=== PATIENT | male | born 1965 | race Caucasian/White ===

== ENCOUNTER 2017-05-28 13:15 | Emergency (ER) | payer SELFPAY ==
[2017-05-28 13:19] VITALS: BP 177/117
--- NOTE | 2017-05-28 13:46 | ER Document Report ---
ED Extremity Problem, Upper - General Chief Complaint: Wrist Pain Stated Complaint: MED REFILL Time Seen by Provider: 05/28/17 13:27 Mode of Arrival: Ambulatory Information source: Patient Notes: 51-year-old male presents to ED for gout flareup to his left hand and wrist since yesterday. States he is out of his gout medications. States he took the last one yesterday. States he has a history of high blood pressure but has not been to a doctor and several months and is been out of his lisinopril and metoprolol. Patient was taken indomethacin for his gout. TRAVEL OUTSIDE OF THE [place] IN LAST 30 DAYS: No - HPI Patient complains to provider of: Left, Hand, Wrist Onset: Other - Started states he took the Indocin he had left the ER for more medication. He also is out of his blood pressure medicine because he has not been back to the doctor for several months. Recent injury: No Quality of pain: Burning, Sharp Severity of pain: Moderate Pain Level: 3 Associated symptoms: None Exacerbated by: Movement, Exertion Relieved by: Rest, Positioning Similar symptoms previously: Yes Recently seen / treated by doctor: No - Related Data Allergies/Adverse Reactions: No Known Allergies Allergy (Verified 05/28/17 13:18) Past Medical History - General Information source: Patient - Social History Smoking Status: Never Smoker Cigarette use (# per day): No Chew tobacco use (# tins/day): No Smoking Education Provided: No Frequency of alcohol use: Occasional Drug Abuse: None Family History: None - Past Medical History Cardiac Medical History: Reports: Hx Heart Attack, Hx Hypercholesterolemia, Hx Hypertension Pulmonary Medical History: Reports: None EENT Medical History: Reports: None Neurological Medical History: Reports: None Endocrine Medical History: Reports: None Renal/ Medical History: Reports: None Malignancy Medical History: Reports None GI Medical History: Reports: None Musculoskeltal Medical History: Reports Hx Arthritis, Reports Hx Gout, Reports Hx Musculoskeletal Trauma Skin Medical History: Reports None Psychiatric Medical History: Reports: None Traumatic Medical History: Reports: Hx Fractures - Right hand Infectious Medical History: Reports: None Past Surgical History: Reports: Hx Cardiac Catheterization, Hx Coronary Stent Review of Systems - Review of Systems Constitutional: No symptoms reported EENT: No symptoms reported Cardiovascular: No symptoms reported Respiratory: No symptoms reported Gastrointestinal: No symptoms reported Genitourinary: No symptoms reported Male Genitourinary: No symptoms reported Musculoskeletal: Other - Left hand pain swelling and erythema with a history of gout Skin: No symptoms reported Hematologic/Lymphatic: No symptoms reported Neurological/Psychological: No symptoms reported -: Yes All other systems reviewed and negative Physical Exam - Vital signs Vitals: Temp Pulse Resp BP Pulse Ox 98.3 F 97 18 177/117 H 97 05/28/17 13:19 05/28/17 13:19 05/28/17 13:19 05/28/17 13:19 05/28/17 13:19 Interpretation: Normal - General General appearance: Appears well, Alert - HEENT Head: Normocephalic, Atraumatic Eyes: Normal Pupils: PERRL - Respiratory Respiratory status: No respiratory distress Chest status: Nontender Breath sounds: Normal Chest palpation: Normal - Cardiovascular Rhythm: Regular Heart sounds: Normal auscultation Murmur: No - Abdominal Inspection: Normal Distension: No distension Bowel sounds: Normal Tenderness: Nontender Organomegaly: No organomegaly - Back Back: Normal, Nontender - Extremities General upper extremity: Normal temperature General lower extremity: Normal inspection, Nontender, Normal color, Normal ROM , Normal temperature, Normal weight bearing. No: Kami's sign Wrist: Tender, Other - Erythema Hand: Tender, No evidence of human bite, No evidence of FB, Swelling, Other - Erythema - Neurological Neuro grossly intact: Yes Cognition: Normal Orientation: AAOx4 Una Coma Scale Eye Opening: Spontaneous Una Coma Scale Verbal: Oriented Felch Coma Scale Motor: Obeys Commands Felch Coma Scale Total: 15 Speech: Normal Motor strength normal: LUE, RUE, LLE, RLE Sensory: Normal - Psychological Associated symptoms: Normal affect, Normal mood - Skin Skin Temperature: Warm Skin Moisture: Dry Skin Color: Normal Course - Re-evaluation Re-evalutation: 05/28/17 21:15 Patient requested no labs or x-ray as he does not have insurance. He states he knows that the gout is still the same as his gout always fills in the past. He states his gout usually in his foot and ankle but he does not want any testing done he just wants the medicine for his gout and his blood pressure medication. - Vital Signs Vital signs: Temp Pulse Resp BP Pulse Ox 98.3 F 97 18 177/117 H 97 05/28/17 13:19 05/28/17 13:19 05/28/17 13:19 05/28/17 13:19 05/28/17 13:19 Discharge - Discharge Clinical Impression: Gout of left hand Qualifiers: Gout etiology: unspecified cause Chronicity: unspecified Qualified Code(s): M10.9 - Gout, unspecified HTN (hypertension) Qualifiers: Hypertension type: essential hypertension Qualified Code(s): I10 - Essential ( primary) hypertension Condition: Stable Disposition: HOME, SELF-CARE Additional Instructions: Seen today for pain swelling and inflammation to your left hand and wrist since Sunday. You have requested no labs or x-rays to be done. You are requesting to just get your gout and blood pressure medications Gout You have been diagnosed as having gout. Gout is a problem caused by an excess of uric acid, a natural chemical found in the body. The cause of this disease is unknown. Gout arthritis occurs when crystals of uric acid form in the joints. The big toe is the most common joint involved, but any joint can become affected. Persons with gout may also form uric acid kidney stones, resulting in flank pain and blood in the urine. Nodules of uric acid may form under the skin. The first step of treatment is to decrease the inflammation in the joint with antiinflammatory medication. Medication to lower the uric acid level in the blood may then be prescribed. This medication should be taken regularly, as any sudden change in dosage may provoke an attack of gout. Some foods, such as red meat, can provoke an attack in some gout sufferers. Call the doctor if new symptoms arise, or if you do not improve. Gout Diet Changing your diet can decrease the uric acid in your blood. High levels of uric acid cause gouty arthritis and uric acid kidney stones. If you have gout , you should avoid meats that are high in purine. Meat products to avoid include liver, kidneys, and brains. In general, poultry is better than red meats. Seafoods to avoid include anchovies, sardines, edge, mackerel, and scallops. In addition to limiting purine-rich foods, people with gout should limit protein intake to 10-15% of total calories. Carbohydrate intake should be around 50% of total daily calories. Limit fat intake to 30% of total daily calories. Cholesterol intake should be less than 300 mg/day. Maintain or achieve a healthy body weight. Weight loss should be gradual. Rapid weight loss can actually increase uric acid levels temporarily. Alcohol, especially beer, should be avoided. Get plenty of fluids. This dilutes urinary uric acid, and helps prevent uric acid kidney stones. Drink eight to twelve cups of water daily. Anti-Inflammatory Medication You have received a prescription for an antiinflammatory agent. This is an excellent, safe drug for pain control. In addition, it has potent antiinflammatory effects which are beneficial, especially in the treatment of injuries, arthritis, or tendonitis. It's best to take this medicine with food. Persons with ulcer disease or allergy to aspirin should notify their physician of this before taking this drug. Take the medication exactly as prescribed. Don't take additional doses unless instructed to do so by your doctor. If you develop wheezing, shortness of breath, hives, faintness, stomach pain, vomiting, or dark black stools, return for re-evaluation at once. STEROID MEDICATION: You have been given a medicine of the cortisone/steroid class. This medication is used to control inflammation or allergy. It is usually only given for a short period of time, until the acute process subsides. There are usually no side effects from short-term use of cortisone-like medications. Some persons feel an increased sense of well-being and are not sleepy at bedtime. Long-term use of cortisone medications is best avoided, unless required for a severe condition. If your condition does not remit, or relapses after the course of corticosteroid medication, you should consult your physician. FOLLOW-UP CARE: If you have been referred to a physician for follow-up care, call the physician s office for an appointment as you were instructed or within the next two days. If you experience worsening or a significant change in your symptoms, notify the physician immediately or return to the Emergency Department at any time for re-evaluation. Prescriptions: Indomethacin [Indocin 25 mg Capsule] 25 mg PO TID #90 capsule Lisinopril 10 mg PO BID #60 tablet Metoprolol Tartrate 25 mg PO BID #60 tablet Prednisone [Deltasone 20 mg Tablet] 3 tab PO DAILY 5 Days Forms: Elevated Blood Pressure, Return to Work Referrals: [facility] [Provider Group] - Follow up as needed [facility] [Provider Group] - Follow up as needed
== END 2017-05-28 14:17 | disposition home or self-care (01) ==
LOC: ER 13:15
DX: M10.9 Gout, unspecified (principal); I10 Essential (primary) hypertension; M25.532 Pain in left wrist; Z79.899 Other long term (current) drug therapy
CPT/HCPCS: 99283

== ENCOUNTER 2018-01-14 08:57 | Emergency (ER) | payer SELFPAY ==
--- NOTE | 2018-01-14 10:50 | ER Document Report ---
ED Extremity Problem, Lower - General Chief Complaint: Knee Pain Stated Complaint: KNEE PAIN Time Seen by Provider: 01/14/18 09:11 Mode of Arrival: Ambulatory Information source: Patient TRAVEL OUTSIDE OF THE [place] IN LAST 30 DAYS: No - HPI Patient complains to provider of: Pain, Swelling Location: Knee Notes: Patient is here with complaints of right knee pain. The patient has a history of gout and has had gout in his wrist, ankle, foot, knee. States that a few days ago he started having some pain and swelling to the right knee consistent with his typical gout flareups. Pain has gotten worse. He denies any falls, trauma, injury. He denies fever. He denies numbness, tingling, weakness. He denies any chest pain or shortness of breath. He denies any nausea, vomiting, diarrhea. No rash. He denies any other complaints at this time. States that this feels exactly like previous gout flareups he has had in the past. - Related Data Allergies/Adverse Reactions: No Known Allergies Allergy (Verified 01/14/18 08:57) Past Medical History - Social History Smoking Status: Never Smoker Chew tobacco use (# tins/day): No Frequency of alcohol use: None Drug Abuse: None Family History: None Patient has suicidal ideation: No Patient has homicidal ideation: No - Past Medical History Cardiac Medical History: Reports: Hx Heart Attack, Hx Hypercholesterolemia, Hx Hypertension Renal/ Medical History: Denies: Hx Peritoneal Dialysis Musculoskeltal Medical History: Reports Hx Arthritis, Reports Hx Gout, Reports Hx Musculoskeletal Trauma Traumatic Medical History: Reports: Hx Fractures - Right hand Past Surgical History: Reports: Hx Cardiac Catheterization, Hx Coronary Stent - Immunizations Hx Diphtheria, Pertussis, Tetanus Vaccination: Yes Review of Systems - Review of Systems -: Yes All other systems reviewed and negative Physical Exam - Vital signs Vitals: Temp Pulse Resp BP Pulse Ox 98.8 F 113 H 17 177/106 H 96 01/14/18 09:00 01/14/18 09:00 01/14/18 09:00 01/14/18 09:00 01/14/18 09:00 - Notes Notes: GENERAL: alert, cooperative, nontoxic, no distress. HEAD: normocephalic, atraumatic EYES: conjunctiva pink without discharge, no external redness or swelling. EARS: no external swelling, no external redness NOSE: atraumatic, no external swelling MOUTH/THROAT: mucous membranes moist and pink NECK: soft, supple, full range of motion, no meningismus. CHEST: no distress, lungs clear and equal throughout. No wheezing, rales, rhonchi. CARDIAC: regular rate and rhythm, no murmur, normal capillary refill, normal pulses. BACK: full range of motion, no CVA tenderness. EXTREMITIES: Full range of motion of the right knee. Swelling noted. Slightly increased warmth to the touch of the right knee. No redness. No ligament instability. Normal pulse and sensation distally. Compartments are soft. NEURO: alert and oriented 3, no focal deficits, full range of motion of all extremities. PYSCH: appropriate mood, affect. Patient is cooperative. SKIN: pink, warm, dry, no rash. Course - Re-evaluation Re-evalutation: 01/14/18 10:45 Patient is nontoxic appearing with stable vitals. Is here with complaints of right knee pain. He denies injuries or falls. He has a prior history of gout and states that this feels exactly like gout he has had in the past. His exam is consistent with gout. There is no redness. No signs of infection. He is a normal pulse and sensation distally. No signs of compartment syndrome. The patient states that he is having an increase in his gout flareups. I instructed him to follow-up with his primary care doctor discussed the possibility of allopurinol if he is having more frequent gout flareups to prevent the need for him to be seen quite as often for acute flareups. He verbalized an understanding of this. The patient is noted to have elevated blood pressure during today's emergency department visit. The patient was informed of this finding. The patient was instructed that this may be related to pre-hypertension and requires further evaluation with a primary care provider. The patient has no hypertensive symptoms at this time. The patient's emergency department workup and current diagnosis were explained to the patient and or family. Follow-up instructions were provided. Medications if prescribed were discussed. Instructions for when to return to the emergency department including specific worrisome symptoms were discussed with the patient and/or family. - Vital Signs Vital signs: Temp Pulse Resp BP Pulse Ox 98.8 F 113 H 17 177/106 H 96 01/14/18 09:00 01/14/18 09:00 01/14/18 09:00 01/14/18 09:00 01/14/18 09:00 Discharge - Discharge Clinical Impression: Gout, arthropathy Condition: Stable Disposition: HOME, SELF-CARE Instructions: Ice & Elevation ([facility]), Oral Narcotic Medication ([facility]), Gout ([facility]) , Gout Diet ([facility]) Additional Instructions: Take medications as prescribed. Apply ice to sore area. Follow-up with your primary care doctor and inform them that you are having an increase in your gout flareups. They may consider starting you on a preventative medicine called allopurinol if they feel that this would be beneficial for you. Follow- up for worsening pain, fever, redness, numbness, tingling, weakness, any further concerns. Your blood pressure was elevated during today's visit. Have this rechecked with your doctor. The medication you were prescribed today may cause drowsiness. Do not drive or operate heavy machinery while taking this medication. Prescriptions: Hydrocodone/Acetaminophen [[place] 5-325 mg Tablet] 2 tab PO Q6H PRN #15 tab PRN Reason: Indomethacin [Indocin 50 mg Capsule] 50 mg PO TID PRN #30 capsule PRN Reason: Forms: Elevated Blood Pressure, Smoking Cessation Education Referrals: [facility] [Provider Group] - Follow up as needed
[2018-01-14 10:56] VITALS: BP 154/100
== END 2018-01-14 10:56 | disposition home or self-care (01) ==
LOC: ER 08:57
DX: M10.9 Gout, unspecified (principal); M25.561 Pain in right knee; M25.461 Effusion, right knee; I25.2 Old myocardial infarction; I10 Essential (primary) hypertension
CPT/HCPCS: 99283

== ENCOUNTER 2018-03-08 09:26 | Emergency (ER) | payer SELFPAY ==
[2018-03-08] MEDS ORDERED: KETOROLAC TROMETHAMINE INJ/PF 30 MG/1 ML SDV IM ONE (10:10)
[2018-03-08] MEDS ORDERED: DEXAMETHASONE SOD PHOS INJ 10 MG/1 ML VIAL IM ONE (10:11)
--- NOTE | 2018-03-08 10:16 | ER Document Report ---
ED Extremity Problem, Lower - General Chief Complaint: Foot Pain Stated Complaint: RIGHT FOOT PAIN Time Seen by Provider: 03/08/18 09:52 Mode of Arrival: Ambulatory Information source: Patient Notes: 52-year-old male presenting ED for complaint of right foot pain. He states it started about 24 hours ago. He has a history of gout in the same toe and foot. He states it feels the same as his previous flareups. States he does not have a primary doctor on the way to go see a doctor at this time. He states his main reason to come to the ED is to get a refill on his prescription for indomethacin for the pain. He is alert and oriented lungs clear respirations even and unlabored, pupils equal and react to light, speaks with full sentences. He is in no acute distress at this time. TRAVEL OUTSIDE OF THE [place] IN LAST 30 DAYS: No - HPI Patient complains to provider of: Pain Location: Foot - Right foot and great toe Occurred: Yesterday Onset/Duration: Gradual, Worse Quality of pain: Burning, Throbbing Severity: Moderate Pain Level: 4 Context: Other Recent injury: No - History of gout Associated symptoms: Painful ambulation Exacerbated by: Hanging down, Walking Relieved by: Other - States indomethacin is always related in the past - Related Data Allergies/Adverse Reactions: No Known Allergies Allergy (Verified 03/08/18 09:52) Past Medical History - General Information source: Patient - Social History Smoking Status: Never Smoker Cigarette use (# per day): No Chew tobacco use (# tins/day): No Smoking Education Provided: No Frequency of alcohol use: None Drug Abuse: None 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 Lives with: Alone Family History: None Patient has suicidal ideation: No Patient has homicidal ideation: No - Past Medical History Cardiac Medical History: Reports: Hx Heart Attack, Hx Hypercholesterolemia, Hx Hypertension Pulmonary Medical History: Reports: None EENT Medical History: Reports: None Neurological Medical History: Reports: None Endocrine Medical History: Reports: None Renal/ Medical History: Reports: None Malignancy Medical History: Reports None GI Medical History: Reports: None Musculoskeltal Medical History: Reports Hx Arthritis, Reports Hx Gout, Reports Hx Musculoskeletal Trauma Skin Medical History: Reports None Psychiatric Medical History: Reports: None Traumatic Medical History: Reports: Hx Fractures - Right hand Infectious Medical History: Reports: None Past Surgical History: Reports: Hx Cardiac Catheterization, Hx Coronary Stent - Immunizations Hx Diphtheria, Pertussis, Tetanus Vaccination: Yes Review of Systems - Review of Systems Constitutional: No symptoms reported EENT: No symptoms reported Cardiovascular: No symptoms reported Respiratory: No symptoms reported Gastrointestinal: No symptoms reported Genitourinary: No symptoms reported Male Genitourinary: No symptoms reported Musculoskeletal: Gout, Other - To right foot and great toe Skin: Change in color - Redness to right foot and great toe Hematologic/Lymphatic: No symptoms reported Neurological/Psychological: No symptoms reported -: Yes All other systems reviewed and negative Physical Exam - Vital signs Vitals: Temp Pulse Resp BP Pulse Ox 98.9 F 97 16 156/94 H 97 03/08/18 09:38 03/08/18 09:38 03/08/18 09:38 03/08/18 09:38 03/08/18 09:38 Interpretation: Normal - General General appearance: Appears well, Alert - HEENT Head: Normocephalic, Atraumatic Eyes: Normal Pupils: PERRL - Respiratory Respiratory status: No respiratory distress Chest status: Nontender Breath sounds: Normal Chest palpation: Normal - Cardiovascular Rhythm: Regular Heart sounds: Normal auscultation Murmur: No - Abdominal Inspection: Normal Distension: No distension Bowel sounds: Normal Tenderness: Nontender Organomegaly: No organomegaly - Back Back: Normal, Nontender - Extremities General upper extremity: Normal inspection, Nontender, Normal color, Normal ROM , Normal temperature General lower extremity: Normal ROM, Normal temperature. No: Kami's sign Foot: Tender, Metatarsal compress. pain, No evidence of FB, Other - Erythema and warmth. No: Abrasion, Deformity, Ecchymosis, Edema, Instability, Laceration , Nail injury, Navicular tenderness, Puncture wound, Tender 5th metatarsal, Unable to bear weight - Neurological Neuro grossly intact: Yes Cognition: Normal Orientation: AAOx4 [place] Coma Scale Eye Opening: Spontaneous Una Coma Scale Verbal: Oriented Una Coma Scale Motor: Obeys Commands [place] Coma Scale Total: 15 Speech: Normal Motor strength normal: LUE, RUE, LLE, RLE Sensory: Normal - Psychological Associated symptoms: Normal affect, Normal mood - Skin Skin Temperature: Warm Skin Moisture: Dry Skin Color: Normal Course - Re-evaluation Re-evalutation: 03/08/18 11:05 Patient was treated with Toradol and Decadron injection discharged home with prescriptions for indomethacin and prednisone for his gout to his right foot and great toe. Patient instructed to follow-up with primary doctor or care in community clinic for his elevated blood pressure and chronic gout. He was also recommended to go to a outsole cementer for his fungus to all of his toenails. - Vital Signs Vital signs: Temp Pulse Resp BP Pulse Ox 98.9 F 97 16 156/94 H 97 03/08/18 09:38 03/08/18 09:38 03/08/18 09:38 03/08/18 09:38 03/08/18 09:38 Discharge - Discharge Clinical Impression: Gout Qualifiers: Gout site: foot Gout etiology: unspecified cause Chronicity: chronic Laterality : right Qualified Code(s): M1A.0710 - Idiopathic chronic gout, right ankle and foot, without tophus (tophi) Condition: Stable Disposition: HOME, SELF-CARE Instructions: Family Physicians / Practices, Steroid Medication Injection, Toradol Injection (OM) Additional Instructions: Gout You have been diagnosed as having gout. Gout is a problem caused by an excess of uric acid, a natural chemical found in the body. The cause of this disease is unknown. Gout arthritis occurs when crystals of uric acid form in the joints. The big toe is the most common joint involved, but any joint can become affected. Persons with gout may also form uric acid kidney stones, resulting in flank pain and blood in the urine. Nodules of uric acid may form under the skin. The first step of treatment is to decrease the inflammation in the joint with antiinflammatory medication. Medication to lower the uric acid level in the blood may then be prescribed. This medication should be taken regularly, as any sudden change in dosage may provoke an attack of gout. Some foods, such as red meat, can provoke an attack in some gout sufferers. Call the doctor if new symptoms arise, or if you do not improve. Gout Diet Changing your diet can decrease the uric acid in your blood. High levels of uric acid cause gouty arthritis and uric acid kidney stones. If you have gout , you should avoid meats that are high in purine. Meat products to avoid include liver, kidneys, and brains. In general, poultry is better than red meats. Seafoods to avoid include anchovies, sardines, edge, mackerel, and scallops. In addition to limiting purine-rich foods, people with gout should limit protein intake to 10-15% of total calories. Carbohydrate intake should be around 50% of total daily calories. Limit fat intake to 30% of total daily calories. Cholesterol intake should be less than 300 mg/day. Maintain or achieve a healthy body weight. Weight loss should be gradual. Rapid weight loss can actually increase uric acid levels temporarily. Alcohol, especially beer, should be avoided. Get plenty of fluids. This dilutes urinary uric acid, and helps prevent uric acid kidney stones. Drink eight to twelve cups of water daily. Anti-Inflammatory Medication You have received a prescription for an antiinflammatory agent. This is an excellent, safe drug for pain control. In addition, it has potent antiinflammatory effects which are beneficial, especially in the treatment of injuries, arthritis, or tendonitis. It's best to take this medicine with food. Persons with ulcer disease or allergy to aspirin should notify their physician of this before taking this drug. Take the medication exactly as prescribed. Don't take additional doses unless instructed to do so by your doctor. If you develop wheezing, shortness of breath, hives, faintness, stomach pain, vomiting, or dark black stools, return for re-evaluation at once. FOLLOW-UP CARE: If you have been referred to a physician for follow-up care, call the physician s office for an appointment as you were instructed or within the next two days. If you experience worsening or a significant change in your symptoms, notify the physician immediately or return to the Emergency Department at any time for re-evaluation. Prescriptions: Indomethacin [Indocin 50 mg Capsule] 50 mg PO TID #30 capsule Forms: Elevated Blood Pressure, Return to Work Referrals: [facility] [Provider Group] - Follow up as needed SISSY VELIZ DPM [ACTIVE STAFF] - Follow up as needed
[2018-03-08 11:05] VITALS: BP 156/94
== END 2018-03-08 10:28 | disposition home or self-care (01) ==
LOC: ER 09:26
DX: M1A.0710 Idiopathic chronic gout, right ankle and foot, without tophus (tophi) (principal); M19.90 Unspecified osteoarthritis, unspecified site; R03.0 Elevated blood-pressure reading, without diagnosis of hypertension; B35.1 Tinea unguium
CPT/HCPCS: 99283; 96372; J1885; J1100

== ENCOUNTER 2019-08-09 10:00 | Emergency (ER) | payer SELFPAY ==
[2019-08-09] MEDS ORDERED: IBUPROFEN 800 MG TABLET PO ONE (10:45)
--- NOTE | 2019-08-09 10:53 | ER Document Report ---
HPI - HPI Patient complains to provider of: Left wrist pain Time Seen by Provider: 08/09/19 10:39 Onset: Other - Sunday Onset/Duration: Persistent Quality of pain: Achy Severity: Severe Pain Level: 5 Context: 53-year-old male with history of high blood pressure high cholesterol gout and PA presents to the emergency department with left wrist pain. Reports history of gout and has had it in the wrist before. Denies trauma. Denies fever vomiting diarrhea. Reports he is taken ibuprofen without relief of symptoms. Patient reports he used to take a green pill really helped his pain but he does not know what it was. Patient reports he is not taking any other medication now but he is supposed to be on medication for high cholesterol high blood pressure and his PA. He reports he needs to find a primary care provider. Associated Symptoms: None Exacerbated by: Denies Relieved by: Denies Similar symptoms previously: Yes Recently seen / treated by doctor: No - REPRODUCTIVE Reproductive: DENIES: : - MUSCULOSKELETAL Musculoskeletal: REPORTS: Extremity pain - L wrist and hand Past Medical History - General Information source: Patient - Social History Smoking Status: Unknown if Ever Smoked Cigarette use (# per day): No Frequency of alcohol use: Occasional Drug Abuse: None Family History: None Patient has suicidal ideation: No Patient has homicidal ideation: No - Past Medical History Cardiac Medical History: Reports: Hx Heart Attack, Hx Hypercholesterolemia, Hx Hypertension Renal/ Medical History: Denies: Hx Peritoneal Dialysis Musculoskeletal Medical History: Reports Hx Arthritis, Reports Hx Gout, Reports Hx Musculoskeletal Trauma Traumatic Medical History: Reports: Hx Fractures - Right hand Past Surgical History: Reports: Hx Cardiac Catheterization - with stent placement, Hx Coronary Stent - Immunizations Hx Diphtheria, Pertussis, Tetanus Vaccination: Yes Vertical Provider Document - INFECTION CONTROL TRAVEL OUTSIDE OF THE [place] IN LAST 30 DAYS: No - HEENT HEENT: Atraumatic, Normocephalic - NECK Neck: Supple - RESPIRATORY Respiratory: No Respiratory Distress - CARDIOVASCULAR Cardiovascular: Regular Rate - MUSCULOSKELETAL/EXTREMETIES Musculoskeletal/Extremeties: MEERAEW, FROM, Tender - Left medial wrist tender to touch swelling erythema. Patient reports he has had gout before and it feels like the same thing. Denies trauma. Good cap refill less than 3 seconds good radial pulse - NEURO Level of Consciousness: Awake, Alert, Appropriate Motor/Sensory: No Motor Deficit - DERM Integumentary: Warm, Dry Course - Re-evaluation Re-evalutation: 08/09/19 10:53 53-year-old male with history of gout presents to the emergency department with left wrist pain that started on Sunday. He reports in the past he took a green pill that seemed to help but he does not have a green pill anymore. He reports he took ibuprofen without relief of symptoms. Patient was instructed on medication. Instructed on the importance of monitoring his blood pressure and follow-up with primary care provider. He was instructed on the dangers of having such a high blood pressure to include stroke and PA. He was instructed on the gout diet. He verbalized understanding to all instructions. Dictation of this chart was performed using voice recognition software; therefore, there may be some unintended grammatical errors. - Vital Signs Vital signs: Temp Pulse Resp BP Pulse Ox 97.7 F 83 18 184/115 H 97 08/09/19 10:04 08/09/19 10:04 08/09/19 10:04 08/09/19 10:04 08/09/19 10:04 Discharge - Discharge Clinical Impression: Gout Qualifiers: Gout site: wrist Gout etiology: unspecified cause Chronicity: acute Laterality: left Qualified Code(s): M10.9 - Gout, unspecified Disposition: HOME, SELF-CARE Instructions: Anti-Inflammatory Medication ([facility]), Family Physicians / Practices, Gout ([facility]), Gout Diet ([facility]), High Blood Pressure, Requiring Treatment ([facility]), Steroid Medication Additional Instructions: *You have been evaluated for left wrist pain, gout * follow gout diet guidelines *Follow up with a primary care provider within one week for recheck *Take medication as prescribed *Return to ED for worsening condition, changes, needs Monitor your blood pressure. Your blood pressure was elevated today. This may be because you were anxious, in pain or because you need medication. It is important to follow up with your primary care provider for full evaluation. Prescriptions: Prednisone [Deltasone 10 mg Tablet] 10 mg PO ASDIR PRN #21 tablet PRN Reason: Indomethacin [Indocin 50 mg Capsule] 50 mg PO TID #30 capsule Forms: Elevated Blood Pressure
[2019-08-09 10:59] VITALS: BP 166/111
== END 2019-08-09 11:03 | disposition home or self-care (01) ==
LOC: ER 10:00
DX: M10.9 Gout, unspecified (principal); M25.532 Pain in left wrist; I10 Essential (primary) hypertension
CPT/HCPCS: 99283